=== PATIENT | male | born 1975 | race Caucasian/White ===

== ENCOUNTER 2016-12-11 18:03 | Emergency (ER) | payer SELFPAY ==
[2016-12-11 18:25] VITALS: BP 136/82; PULSE 102; TEMP 98; BMI 21.5
--- NOTE | 2016-12-11 18:57 | EDPRACDOC ---
- General Information Chief Complaint: Eye Problems Stated Complaint: EYE INFECTION Time Seen by Provider: 12/11/16 18:25 Information Source: Patient Mode Of Arrival: Car Home Medications: Home Medications Meloxicam [Mobic] 15 mg PO DAILY #30 tab 07/08/16 Clindamycin HCl 300 mg PO Q6 #40 capsule 08/03/16 Oxycodone HCl [Roxicodone] 5 mg PO Q4-6H PRN #15 tablet 08/03/16 Amoxicillin/Clavulanate Potas. [Augmentin] 875 mg PO BID #20 tab 12/11/16 Gentamicin Sulfate 3.5 gm OD BID #1 oint...g. 12/11/16 Ibuprofen 600 mg PO TID #20 tablet 12/11/16 Allergies/Adverse Reactions: Allergies Allergy/AdvReac Type Severity Reaction Status Date / Time Sulfa (Sulfonamide Allergy Hives* Verified 07/08/16 14:41 Antibiotics) - History of Present Illness Onset: 6 days HPI: PT PRESENTS TODAY WITH 1 WEEK OF RIGHT LOWER EYELID SWELLING/DISCHARGE. STATES HE ALSO BELIEVES HE HAS SPREAD IT TO THE LEFT EYE X 2 DAYS. NO FEVER. PURULENT DISCHARGE. MILD PHOTOPHOBIA. NO PAIN WITH EOMI. Eye Symptoms: Reports: Discomfort, Itching, Burning, Tearing, Discharge, Redness , Photophobia Symptoms: Moderate Associated Signs and Symptoms:: Reports: Tearing, Photophobia ED Past Medical History - History Reviewed Yes Nurses notes reviewed and agree except as marked - Patient Medical History Psychological History: Denies: Depression, Substance Use Disorder Systemic History: Denies: Cancer Additional Past Medical History: ORIF Right Tib/Fib - Social Medical History Smoking Status: Heavy tobacco smoker (5 or more cigarettes/day or daily pipe/ cigar) Social History: Denies: Substance Use Disorder EDM Review of Systems - Review of Systems ROS Negative Except as Marked: Yes All systems reviewed and were negative except as marked Constitutional: No Symptoms Reported Eyes: Discharge, Light Sensitive, Pain, Redness Ears: No Symptoms Reported Throat: No Symptoms Reported Nose: No Symptoms Reported Respiratory: No Symptoms Reported Cardiovascular: No Symptoms Reported Gastrointestinal: No Symptoms Reported Neurological: No Symptoms Reported Musculoskeletal: No Symptoms Reported Integumentary: No Symptoms Reported - Physical Exam Constitutional: Alert (Awake), No apparent distress Oriented to: Time, Person, Place Last recorded Vital Signs: Last Vital Signs Temp 98 F 12/11/16 18:22 Pulse 102 12/11/16 18:22 Resp 16 12/11/16 18:22 BP 136/82 12/11/16 18:22 Pulse Ox 97 12/11/16 18:22 Oxygen Pulse Oxygen Saturation 97 O2 Device Room Air Oxygen Flow Rate Fraction of Inspired Oxygen ( FIO2) - HEENT Head: Normal Eye Exam: Other (NOTED REDNESS/SWELLING TO BILATERAL LOWER EYELIDS, RIGHT WORSE THAN LEFT; ALSO NOTED ECCHYMOSIS TO LOWER LIDS THAT APPEARS TO BE HEALING, ALTHOUGH PT DENIES BEING HIT; PERRL, EOMI, RED REFLEX NOTED) Oropharynx: Normal Tympanic Membrane: Normal ENT EAC: Normal Nose: No Symptoms Reported Neck: Normal, Denies Pain, Midline - Respiratory/Cardiovascular Respiratory: Normal - CTA Cardiovascular: Normal - GI Palpation: Normal Tenderness: Non tender - Musculoskeletal Back: Normal Extremities: Normal - Integumentary Skin: Normal Lymphatics: Normal - Neurologic Cerebellar: Normal Mood Description: Normal Thought: Coherent Perception: Normal ED Eye Problem Exam Eye Exam: bilateral eye: PERRL, EOMI, conjunctival inflammation, eyelid inflammation Eye Discharge: Yellow Decision Time to Discharge: 18:55 - Departure Disposition: Home Condition: Good Final Diagnosis: Periorbital cellulitis Qualifiers: Laterality: unspecified laterality Qualified Code(s): L03.213 - Periorbital cellulitis Instructions: Periorbital Cellulitis in Children (ED) Education/Counseling Given To: Patient Education/Counseling Given Regarding: Diagnosis, Treatment, Follow Up Referrals: None,No Provider [Primary Care Provider] - One Week [facility] [NonStaff] - One Week Prescriptions: Amoxicillin/Clavulanate Potas. [Augmentin] 875 mg PO BID #20 tab Gentamicin Sulfate 3.5 gm OD BID #1 oint...g. Ibuprofen 600 mg PO TID #20 tablet Additional Instructions: TRY NOT TO TOUCH EYES. WARM COMPRESSES FOR ADDITIONAL RELIEF. RETURN TO ED FOR ANY WORSE/CONCERNING SYMPTOMS.
== END 2016-12-11 19:01 | disposition home or self-care (01) ==
LOC: ED 18:03 → EDMC 19:01
DX: L03.213 Periorbital cellulitis (principal)
CPT/HCPCS: 99282